=== PATIENT | female | born 1935 | race African-American/Black ===

== ENCOUNTER 2022-02-09 18:38 | Inpatient (IN) | payer OTHER, MEDICAID ==
[~2022-02-09] VITALS: Ht 170.2 cm; Wt 64.0 kg
[2022-02-09] MEDS ORDERED: MIDAZOLAM HCL 2MG/2ML 2ml VIAL (1mg/ml) ONE ×2 (19:29→19:34)
[2022-02-09 19:32] VITALS: BP 93/47
[2022-02-09] MEDS: MIDAZOLAM DRIP 50 mg/50mL 50 ML IV SCH (19:45)
[2022-02-09] MEDS ORDERED: MIDAZOLAM DRIP 50 mg/50mL 50 ML IV ONE (19:45)
[2022-02-09 20:23] LABS: Basophils # (auto) 0 10 ^3/uL (0-0.2); Basophils % (auto) 0.3 % (0.0-2.0); Eosinophils # (auto) 0 10 ^3/uL (0-0.8); Eosinophils % (auto) 0.1 % (0.0-7.0); Hematocrit 28.5 % (36.0-46.0); Hemoglobin 9.4 g/dL (12.2-16.2); Lymphocytes # (auto) 1.8 10 ^3/uL (0.4-5.4); Lymphocytes % (auto) 14.3 % (10.0-50.0); Mean Corpuscular Hemoglobin 28.5 pg (28.0-32.0); Mean Corpuscular Hgb Conc. 32.9 g/dL (32.0-36.0); Mean Corpuscular Volume 86.8 fL (80.0-100.0); Monocytes # (auto) 0.9 10 ^3/uL (0-1.3); Monocytes % (auto) 6.9 % (0.0-12.0); Neutrophils # (auto) 9.7 10 ^3/uL (1.6-8.6); Neutrophils % (auto) 78.4 % (37.0-80.0); Nucleated Red Blood Cells % 0.1 %; Red Blood Cells 3.28 10^6/uL (4.0-5.20); Red Cell Distribution Width 16.1 % (11.8-14.3); White Blood Cell 12.4 10^3/uL (4.4-10.8)
[2022-02-09] MEDS ORDERED: MIDAZOLAM HCL 2MG/2ML 2ml VIAL (1mg/ml) IV ONE ×2 (20:30)
[2022-02-09 20:52] LABS: Albumin 1.9 g/dL (3.4-5.0); Calcium 8.3 mg/dL (8.5-10.1); Potassium 3.5 mmol/L (3.5-5.1)
[2022-02-09 20:55] LABS: BUN/Creatinine Ratio 66.7; Bilirubin, Total 0.4 mg/dL (0.2-1.0); Total Protein 6.2 g/dL (6.4-8.2)
[2022-02-09 21:12] LABS: Lactic Acid w/Reflex 3.8 mmol/L (0.4-2.0)
[2022-02-09 21:43] VITALS: BP 106/64
[2022-02-09 21:56] VITALS: BP 115/59
[2022-02-09] MEDS ORDERED: SODIUM CHLORIDE 0.9% 1,000 ML IV ONE (22:00)
[2022-02-09] MEDS ORDERED: PIPERACILLIN-TAZOB 3.375GM 100 ML IV ONE ×2 (22:00→22:15)
[2022-02-09] MEDS ORDERED: ACETAMINOPHEN 650 MG RECT SUPP PR PRN (22:15)
[2022-02-09] MEDS ORDERED: ASPirin 300 MG RECTAL SUPP PR ONE (22:15)
[2022-02-09] MEDS ORDERED: ONDANSETRON HCL 4 MG/2 ML VIAL IV PRN (22:15)
[2022-02-09] MEDS ORDERED: SOD CHL 0.45% 1,000 ML IV ONE (22:15)
[2022-02-09 22:49] LABS: Urine Amorphous Crystal FEW /hpf (None Seen); Urine Bacteria MANY /hpf (None Seen); Urine Blood Negative /uL (Negative); Urine Mucus FEW (None Seen); Urine Specific Gravity 1.022 (1.001-1.035); Urine WBC 18 /hpf (0 - 5)
[2022-02-09] MEDS ORDERED: MORPHINE SULFATE INJ 2 MG/ml SYRG IV PRN (23:00)
[2022-02-09] MEDS ORDERED: NITROGLYCERIN 0.4 MG SL TAB SL PRN (23:00)
[2022-02-09] MEDS: ALBUMIN 25% 50 ML IV SCH (23:15)
[2022-02-09] MEDS ORDERED: ACETAMINOPHEN 650 MG RECT SUPP PR ONE (23:15)
[2022-02-09] MEDS: InsuLIN REG 1unit/0.01ml Soln (100units/ml) SC SCH (23:21)
[2022-02-10] VITALS (13 sets, daily range): BP systolic 86–121; BP diastolic 53–76
[2022-02-10] MEDS: ALBUMIN 25% 50 ML IV SCH ×2 (05:18→17:02)
[2022-02-10] MEDS: PIPERACILLIN-TAZOB 3.375GM 100 ML IV SCH ×3 (05:19→21:00)
[2022-02-10] MEDS: ACCU-CHEK COMFORT CURVE STRIP VI SCH ×4 (06:24→22:25)
[2022-02-10] MEDS: InsuLIN REG 1unit/0.01ml Soln (100units/ml) SC SCH ×3 (06:35→17:00)
[2022-02-10 07:21] LABS: Hemoglobin 7.6 g/dL (12.2-16.2); White Blood Cell 11.9 10^3/uL (4.4-10.8)
[2022-02-10 07:25] LABS: Hematocrit 22.8 % (36.0-46.0); Mean Corpuscular Hemoglobin 28.8 pg (28.0-32.0); Mean Corpuscular Hgb Conc. 33.5 g/dL (32.0-36.0); Mean Corpuscular Volume 86.1 fL (80.0-100.0); Red Blood Cells 2.65 10^6/uL (4.0-5.20); Red Cell Distribution Width 16.1 % (11.8-14.3)
[2022-02-10 07:38] LABS: Basophils % (manual) 0 (0.0-2.0); Blast Cells 0; Eosinophils % (manual) 0 (0-7); Monocytes % (manual) 0 (0-12); Promyelocytes % 0; Reactive Lymphocytes 0
[2022-02-10 07:43] LABS: Lactic Acid w/Reflex 2.5 mmol/L (0.4-2.0)
[2022-02-10 07:44] LABS: Potassium 3.1 mmol/L (3.5-5.1)
[2022-02-10 07:51] LABS: Bilirubin, Total 0.9 mg/dL (0.2-1.0); Calcium 7.8 mg/dL (8.5-10.1); Total Protein 5.6 g/dL (6.4-8.2)
[2022-02-10 07:58] LABS: Band Neutrophils % (manual) 11; Lymphocytes % (manual) 16 (10.0-50.0); Metamyelocytes % 1; Myelocytes % 1
[2022-02-10] MEDS: FAMOTIDINE (10MG/ML) 2ML VL IV SCH (10:00)
[2022-02-10] MEDS: MIDAZOLAM DRIP 50 mg/50mL 50 ML IV SCH ×2 (10:01→18:29)
[2022-02-10] MEDS: POTASSIUM CHL 20MEQ/100ML 100 ML IV SCH ×2 (10:01→13:40)
[2022-02-10] MEDS ORDERED: LACTATED RINGER'S 500 ML IV ONE (10:30)
[2022-02-10] MEDS ORDERED: VANCOMYCIN PER PHARMACY 0 MG IV SCH (10:30)
[2022-02-10] MEDS ORDERED: VANCOMYCIN 1GM/250ML 250 ML IV ONE (10:45)
[2022-02-10] MEDS ORDERED: LACTATED RINGER'S 1,000 ML IV ONE (12:15)
[2022-02-10] MEDS ORDERED: ENOXAPARIN SOD 40 MG/0.4 ML SYRINGE SC ONE (13:30)
[2022-02-10 13:36] LABS: INR 1.37 (0.9-1.15)
[2022-02-10] MEDS: LACTATED RINGER'S 1,000 ML IV SCH ×2 (13:41→19:45)
[2022-02-10] MEDS: NOREPINEPHRINE 8 MG/250ML KIT 250 ML IV SCH (13:45)
[2022-02-10] MEDS: fentaNYL Drip 2500mCg/250mlNS 250 ML IV SCH (17:20)
[2022-02-10] MEDS: SODIUM CHLOR 0.9% PF (SALINE LOCK) 10ML VIAL/SYR IV SCH (19:35)
[2022-02-11] VITALS (41 sets, daily range): BP systolic 81–109; BP diastolic 48–65
[2022-02-11] MEDS: PIPERACILLIN-TAZOB 3.375GM 100 ML IV SCH ×3 (05:05→22:47)
[2022-02-11] MEDS: ACCU-CHEK COMFORT CURVE STRIP VI SCH ×4 (06:35→22:00)
[2022-02-11] MEDS: InsuLIN REG 1unit/0.01ml Soln (100units/ml) SC SCH ×4 (06:36→22:00)
[2022-02-11 07:40] LABS: Basophils # (auto) 0 10 ^3/uL (0-0.2); Basophils % (auto) 0.1 % (0.0-2.0); Eosinophils # (auto) 0 10 ^3/uL (0-0.8); Hematocrit 17.5 % (36.0-46.0); Monocytes # (auto) 0.3 10 ^3/uL (0-1.3); White Blood Cell 9.2 10^3/uL (4.4-10.8)
[2022-02-11 07:42] LABS: Eosinophils % (auto) 0.3 % (0.0-7.0); Lymphocytes % (auto) 11.3 % (10.0-50.0); Mean Corpuscular Hemoglobin 29.4 pg (28.0-32.0); Mean Corpuscular Hgb Conc. 34.3 g/dL (32.0-36.0); Mean Corpuscular Volume 85.7 fL (80.0-100.0); Monocytes % (auto) 3.7 % (0.0-12.0); Neutrophils # (auto) 7.8 10 ^3/uL (1.6-8.6); Neutrophils % (auto) 84.6 % (37.0-80.0); Nucleated Red Blood Cells % 0.1 %; Red Blood Cells 2.05 10^6/uL (4.0-5.20); Red Cell Distribution Width 16.3 % (11.8-14.3)
[2022-02-11 07:59] LABS: BUN/Creatinine Ratio 73.5; Calcium 7.6 mg/dL (8.5-10.1)
[2022-02-11] MEDS: LACTATED RINGER'S 1,000 ML IV SCH ×2 (08:15→20:38)
[2022-02-11] MEDS: ENOXAPARIN SOD 40 MG/0.4 ML SYRINGE SC SCH (09:34)
[2022-02-11] MEDS: FAMOTIDINE (10MG/ML) 2ML VL IV SCH (09:34)
[2022-02-11] MEDS: SODIUM CHLOR 0.9% PF (SALINE LOCK) 10ML VIAL/SYR IV SCH ×2 (09:35→22:50)
[2022-02-11] MEDS: POTASSIUM CHL 20MEQ/100ML 100 ML IV SCH ×2 (11:18→13:34)
[2022-02-11] MEDS: DEXTROSE (50%) 50ML SYRG IV PRN ×2 (11:37→20:50)
[2022-02-11] MEDS: fentaNYL Drip 2500mCg/250mlNS 250 ML IV SCH (12:15)
[2022-02-11] MEDS: NOREPINEPHRINE 8 MG/250ML KIT 250 ML IV SCH (12:28)
[2022-02-12] VITALS (104 sets, daily range): BP systolic 86–148; BP diastolic 54–78
[2022-02-12] MEDS: MIDAZOLAM DRIP 50 mg/50mL 50 ML IV SCH ×2 (04:28→20:30)
[2022-02-12] MEDS: LACTATED RINGER'S 1,000 ML IV SCH ×2 (06:09→16:06)
[2022-02-12] MEDS: PIPERACILLIN-TAZOB 3.375GM 100 ML IV SCH ×3 (06:11→23:15)
[2022-02-12 07:52] LABS: Hematocrit 31.8 % (36.0-46.0); Hemoglobin 10.6 g/dL (12.2-16.2); Mean Corpuscular Hemoglobin 28.4 pg (28.0-32.0); Mean Corpuscular Hgb Conc. 33.4 g/dL (32.0-36.0); Mean Corpuscular Volume 84.9 fL (80.0-100.0); Red Blood Cells 3.75 10^6/uL (4.0-5.20); White Blood Cell 14.5 10^3/uL (4.4-10.8)
[2022-02-12 08:09] LABS: Potassium 3.3 mmol/L (3.5-5.1)
[2022-02-12 08:17] LABS: BUN/Creatinine Ratio 43.9
[2022-02-12 08:18] LABS: Basophils % (manual) 0 (0.0-2.0); Blast Cells 0; Eosinophils % (manual) 0 (0-7); Metamyelocytes % 0; Myelocytes % 0; Promyelocytes % 0; Reactive Lymphocytes 0
[2022-02-12 09:23] LABS: Band Neutrophils % (manual) 8; Lymphocytes % (manual) 7 (10.0-50.0); Monocytes % (manual) 4 (0-12)
[2022-02-12] MEDS ORDERED: POTASSIUM CHL 20MEQ/100ML 100 ML IV ONE (09:45)
[2022-02-12] MEDS: ENOXAPARIN SOD 40 MG/0.4 ML SYRINGE SC SCH (10:08)
[2022-02-12] MEDS: FAMOTIDINE (10MG/ML) 2ML VL IV SCH (10:08)
[2022-02-12] MEDS: SODIUM CHLOR 0.9% PF (SALINE LOCK) 10ML VIAL/SYR IV SCH ×2 (10:09→23:16)
[2022-02-12] MEDS: InsuLIN REG 1unit/0.01ml Soln (100units/ml) SC SCH ×4 (11:30→22:00)
[2022-02-12] MEDS: ACCU-CHEK COMFORT CURVE STRIP VI SCH ×3 (11:32→23:17)
[2022-02-12] MEDS: DEXTROSE (50%) 50ML SYRG IV PRN (11:41)
[2022-02-12] MEDS: fentaNYL Drip 2500mCg/250mlNS 250 ML IV SCH (12:15)
[2022-02-12] MEDS: FREE WATER GT SCH ×2 (13:33→18:00)
[2022-02-12] MEDS: NOREPINEPHRINE 8 MG/250ML KIT 250 ML IV SCH (13:45)
[2022-02-13] VITALS (103 sets, daily range): BP systolic 95–162; BP diastolic 52–117
[2022-02-13] MEDS: LACTATED RINGER'S 1,000 ML IV SCH ×2 (02:28→13:30)
[2022-02-13 05:11] LABS: Basophils # (auto) 0 10 ^3/uL (0-0.2); Basophils % (auto) 0.1 % (0.0-2.0); Eosinophils # (auto) 0 10 ^3/uL (0-0.8); Eosinophils % (auto) 0.2 % (0.0-7.0); Hematocrit 30.9 % (36.0-46.0); Lymphocytes # (auto) 1.1 10 ^3/uL (0.4-5.4); Lymphocytes % (auto) 8.9 % (10.0-50.0); Mean Corpuscular Hemoglobin 28.3 pg (28.0-32.0); Mean Corpuscular Hgb Conc. 32.3 g/dL (32.0-36.0); Mean Corpuscular Volume 87.7 fL (80.0-100.0); Monocytes # (auto) 0.5 10 ^3/uL (0-1.3); Monocytes % (auto) 3.9 % (0.0-12.0); Neutrophils # (auto) 10.9 10 ^3/uL (1.6-8.6); Neutrophils % (auto) 86.9 % (37.0-80.0); Nucleated Red Blood Cells % 0.1 %; Red Blood Cells 3.53 10^6/uL (4.0-5.20); Red Cell Distribution Width 17.2 % (11.8-14.3); White Blood Cell 12.5 10^3/uL (4.4-10.8)
[2022-02-13 05:27] LABS: BUN/Creatinine Ratio 46.5; Calcium 7.4 mg/dL (8.5-10.1)
[2022-02-13] MEDS: FREE WATER GT SCH ×4 (06:00→18:39)
[2022-02-13] MEDS: PIPERACILLIN-TAZOB 3.375GM 100 ML IV SCH ×3 (06:54→21:05)
[2022-02-13] MEDS: InsuLIN REG 1unit/0.01ml Soln (100units/ml) SC SCH ×4 (06:54→22:00)
[2022-02-13] MEDS: ACCU-CHEK COMFORT CURVE STRIP VI SCH ×4 (06:54→22:36)
[2022-02-13] MEDS: FAMOTIDINE (10MG/ML) 2ML VL IV SCH (10:35)
[2022-02-13] MEDS: ENOXAPARIN SOD 40 MG/0.4 ML SYRINGE SC SCH (10:35)
[2022-02-13] MEDS: POTASSIUM CHL 20MEQ/100ML 100 ML IV SCH ×3 (10:37→13:50)
[2022-02-13] MEDS: SODIUM CHLOR 0.9% PF (SALINE LOCK) 10ML VIAL/SYR IV SCH ×2 (11:10→21:06)
[2022-02-13] MEDS: fentaNYL Drip 2500mCg/250mlNS 250 ML IV SCH (13:30)
[2022-02-13] MEDS: NOREPINEPHRINE 8 MG/250ML KIT 250 ML IV SCH (13:45)
[2022-02-13] MEDS: MIDAZOLAM DRIP 50 mg/50mL 50 ML IV SCH (20:30)
[2022-02-13] MEDS: VANCOMYCIN HCL 125MG/5ML ORAL SOL GT SCH ×2 (21:05→22:00)
[2022-02-14] VITALS (72 sets, daily range): BP systolic 89–166; BP diastolic 49–84
[2022-02-14] MEDS: FREE WATER GT SCH ×4 (02:08→17:47)
[2022-02-14 05:18] LABS: Basophils # (auto) 0 10 ^3/uL (0-0.2); Basophils % (auto) 0.2 % (0.0-2.0); Eosinophils # (auto) 0 10 ^3/uL (0-0.8); Eosinophils % (auto) 0.4 % (0.0-7.0); Hematocrit 29.2 % (36.0-46.0); Hemoglobin 9.8 g/dL (12.2-16.2); Lymphocytes # (auto) 1.3 10 ^3/uL (0.4-5.4); Lymphocytes % (auto) 11.9 % (10.0-50.0); Mean Corpuscular Hemoglobin 29.5 pg (28.0-32.0); Mean Corpuscular Hgb Conc. 33.6 g/dL (32.0-36.0); Mean Corpuscular Volume 87.7 fL (80.0-100.0); Monocytes # (auto) 0.5 10 ^3/uL (0-1.3); Monocytes % (auto) 4.8 % (0.0-12.0); Neutrophils # (auto) 9.2 10 ^3/uL (1.6-8.6); Neutrophils % (auto) 82.7 % (37.0-80.0); Nucleated Red Blood Cells % 0.1 %; Red Blood Cells 3.33 10^6/uL (4.0-5.20); Red Cell Distribution Width 17.4 % (11.8-14.3); White Blood Cell 11.2 10^3/uL (4.4-10.8)
[2022-02-14 05:24] LABS: BUN/Creatinine Ratio 32.6; Calcium 7.3 mg/dL (8.5-10.1); Potassium 3.2 mmol/L (3.5-5.1)
[2022-02-14] MEDS: PIPERACILLIN-TAZOB 3.375GM 100 ML IV SCH ×3 (06:21→22:08)
[2022-02-14] MEDS: VANCOMYCIN HCL 125MG/5ML ORAL SOL GT SCH ×4 (06:23→22:07)
[2022-02-14] MEDS: ACCU-CHEK COMFORT CURVE STRIP VI SCH ×4 (06:23→22:07)
[2022-02-14] MEDS: InsuLIN REG 1unit/0.01ml Soln (100units/ml) SC SCH ×4 (06:23→22:00)
[2022-02-14] MEDS ORDERED: POTASSIUM CHL 20MEQ/100ML 100 ML IV ONE (10:30)
[2022-02-14] MEDS: ENOXAPARIN SOD 40 MG/0.4 ML SYRINGE SC SCH (11:15)
[2022-02-14] MEDS: DEXTROSE (50%) 50ML SYRG IV PRN (11:15)
[2022-02-14] MEDS: FAMOTIDINE (10MG/ML) 2ML VL IV SCH (11:15)
[2022-02-14] MEDS: SODIUM CHLOR 0.9% PF (SALINE LOCK) 10ML VIAL/SYR IV SCH ×2 (11:22→22:07)
[2022-02-14] MEDS: POTASSIUM CHL 20MEQ/100ML 100 ML IV SCH ×2 (11:23→13:05)
[2022-02-14] MEDS ORDERED: Vital AF 1.2 Cal 1 liter bottle GT SCH (11:45)
[2022-02-14] MEDS ORDERED: amLODIPine BESYLATE 5 MG TAB PO ONE (12:15)
[2022-02-14] MEDS: fentaNYL Drip 2500mCg/250mlNS 250 ML IV SCH (12:15)
[2022-02-14] MEDS: NOREPINEPHRINE 8 MG/250ML KIT 250 ML IV SCH (13:45)
[2022-02-15] MEDS ORDERED: amLODIPine BESYLATE 5 MG TAB PO SCH (10:00)
[2022-02-15] MEDS ORDERED: Pro-Stat SF 30ml Vanilla GT SCH (10:00)
== END 2022-02-14 22:25 | disposition short-term general hospital (02) | DRG 870 ==
LOC: ER 18:38 → EDBD 18:38 → TELE 22:46 → ICU CENTRL 02-11 15:05
PROVIDERS: ADMIT Nurse Practitioner Family; ATTEND Internal Medicine Pulmonary Disease
PROC: 5A1955Z Respiratory Ventilation, Greater than 96 Consecutive Hours (ICD-10-PCS; principal; 2022-02-09)
PROC: 0BH17EZ Insertion of Endotracheal Airway into Trachea, Via Natural or Artificial Opening (ICD-10-PCS; 2022-02-09)
PROC: 02HV33Z Insertion of Infusion Device into Superior Vena Cava, Percutaneous Approach (ICD-10-PCS; 2022-02-10)
PROC: B548ZZA Ultrasonography of Superior Vena Cava, Guidance (ICD-10-PCS; 2022-02-10)
DX: A41.9 Sepsis, unspecified organism (principal); E43 Unspecified severe protein-calorie malnutrition; L89.94 Pressure ulcer of unspecified site, stage 4; J96.01 Acute respiratory failure with hypoxia; G93.41 Metabolic encephalopathy; I21.4 Non-ST elevation (NSTEMI) myocardial infarction; E87.0 Hyperosmolality and hypernatremia; N39.0 Urinary tract infection, site not specified; D62 Acute posthemorrhagic anemia; Z68.1 Body mass index [BMI] 19.9 or less, adult; R77.8 Other specified abnormalities of plasma proteins; Z20.822 Contact with and (suspected) exposure to COVID-19; E86.0 Dehydration; E78.5 Hyperlipidemia, unspecified; I10 Essential (primary) hypertension; R73.9 Hyperglycemia, unspecified; E87.6 Hypokalemia; Z86.73 Personal history of transient ischemic attack (TIA), and cerebral infarction without residual deficits
CPT/HCPCS: 31500; 36415; 36569; 36600; 71045; 80048; 80053; 81001; 82805; 82962; 83036; 83605; 83735; 83880; 84484; 85007; 85025; 85027; 85610; 86850; 86900; 86901; 86920; 87040; 87070; 87077; 87081; 87086; 87147; 87186; 87205; 87493; 93005; 94002; 94003; 96360; 96361; 99291; G0378; J2250; J2543; J3480; J3490